=== PATIENT | female | born 1960 | race Caucasian/White ===

== ENCOUNTER 2017-12-01 21:23 | Emergency (ER) | payer OTHER ==
[2017-12-01 22:21] VITALS: BP 157/72
[2017-12-01] MEDS ORDERED: Proparacaine 0.5% Ophth Soln 15 ML Bottle EYELF ONE (23:23)
--- NOTE | 2017-12-01 23:51 | EDM.PDOC ---
ED HPI GENERAL MEDICAL PROBLEM - General Chief Complaint: ENT Problem Stated Complaint: LEFT EYE SWOLLEN SHUT Time Seen by Provider: 12/01/17 23:18 Source of Information: Reports: Patient History Limitations: Reports: No Limitations - History of Present Illness INITIAL COMMENTS - FREE TEXT/NARRATIVE: Dx pink eye to left eye a couple days ago. Had been using string prosper but doesn't remember getting anyting in eye. Rx polymixin/TMP/SMX drops. Getting worse. Itching and burning. Pt just remembered that long ago she had some kind of reaction to sulfa but not listed as allergy. - Related Data Allergies Allergy/AdvReac Type Severity Reaction Status Date / Time levofloxacin Allergy Hives Verified 12/01/17 22:25 Home Meds: Home Meds Citalopram [Citalopram HBr] 40 mg PO DAILY 06/19/16 [History] Hydrochlorothiazide 25 mg PO DAILY 06/19/16 [History] LORazepam [Ativan] 0.5 mg PO BEDTIME 06/19/16 [History] Omeprazole 40 mg PO DAILY 06/19/16 [History] Polymyxin B Sulf/Trimethoprim [Polymyxin B-Tmp Eye Drops] 1 - 2 drop EYELF Q4H 12/01/17 [History] Past Medical History - Past Health History Medical/Surgical History: Denies Medical/Surgical History Cardiovascular History: Reports: Hypertension Gastrointestinal History: Reports: Hiatal Hernia [employer] History: Reports: Psychiatric History: Reports: Anxiety - Past Surgical History Female Surgical History: Reports: Tubal Ligation Social & Family History - Tobacco Use Smoking Status *Q: Never Smoker - Caffeine Use Caffeine Use: Reports: None - Recreational Drug Use Recreational Drug Use: No ED ROS ENT - Review of Systems Review Of Systems: ROS reveals no pertinent complaints other than HPI. ED EXAM, ENT - Physical Exam Exam: See Below Exam Limited By: No Limitations General Appearance: Alert Eye Exam: Bilateral Eye: Other (very angry red conjunctiva with some conj edema. PERRLA, EOMI. No FB. Fluorescein stain. No corneal abnormality. no definite discharge. Some possible perorbital cellulitis, mild. Can't test vision.) Course - Vital Signs Last Recorded V/S: Last Vital Signs Temp 37.8 C 12/01/17 22:27 Pulse 82 12/01/17 22:27 Resp 18 12/01/17 22:27 BP 157/72 H 12/01/17 22:27 Pulse Ox 95 12/01/17 22:27 - Orders/Labs/Meds Meds: Medications Discontinued Medications Generic Name Dose Route Start Last Admin Trade Name Rhiannon PRN Reason Stop Dose Admin Proparacaine HCl 1 ml 12/01/17 23:23 Proparacaine 0.5% Ophth Soln EYELF 12/01/17 23:24 ONETIME ONE Departure - Departure Time of Disposition: 23:51 Disposition: Home, Self-Care 01 Condition: Fair Clinical Impression: [place] eye disease of left eye - Discharge Information Referrals: Morgan Kang MD [Primary Care Provider] - Additional Instructions: Use Gentamicin drops as directed. Stop the Polymixin/TMP/SMX drops that contain sulfa. See your program developer tomorrow for a re-check. Very important. Also take Cephalexin 500 mg 4 times per day. There may also be some infection in the skin around your eye.
== END 2017-12-02 00:03 | disposition home or self-care (01) ==
LOC: JP.ED 21:23
DX: H10.022 Other mucopurulent conjunctivitis, left eye (principal); I10 Essential (primary) hypertension; F41.9 Anxiety disorder, unspecified; Z79.899 Other long term (current) drug therapy; Z88.1 Allergy status to other antibiotic agents
CPT/HCPCS: 99283; A9270

== ENCOUNTER 2021-11-09 10:11 | Day surgery (SDC) | payer OTHER ==
[~2021-11-09 10:11] MED LIST: Midazolam 1 MG/ML 2 ML SDV ONE; Propofol 200 MG/20 ML SDV ONE; fentaNYL 100 MCG/2 ML SDV ONE
[2021-11-09] MEDS: Lactated Ringers 1,000 ML IV SCH (10:30)
[2021-11-09] MEDS ORDERED: Propofol 200 MG/20 ML SDV ONE (11:10)
[2021-11-09 12:12] VITALS: PULSE 76
[2021-11-09 12:26] VITALS: BP 125/65
== END 2021-11-09 12:31 | disposition home or self-care (01) ==
LOC: JP.SDS 10:11
PROVIDERS: ATTEND Family Medicine
DX: Z12.11 Encounter for screening for malignant neoplasm of colon (principal); K57.30 Diverticulosis of large intestine without perforation or abscess without bleeding; K31.7 Polyp of stomach and duodenum; K21.9 Gastro-esophageal reflux disease without esophagitis; K44.9 Diaphragmatic hernia without obstruction or gangrene; I10 Essential (primary) hypertension; N39.0 Urinary tract infection, site not specified; F32.9 Major depressive disorder, single episode, unspecified; Z88.2 Allergy status to sulfonamides; Z88.8 Allergy status to other drugs, medicaments and biological substances; Z98.890 Other specified postprocedural states
CPT/HCPCS: 43239; 45378; 88305; J2250; J2704; J3010; J7120

== ENCOUNTER 2023-06-07 19:30 | Emergency (ER) | payer OTHER ==
[2023-06-07 20:19] LABS: BASOPHILS PERCENT AUTO 0.2 % (0.1-1.3); HEMATOCRIT 44.2 % (34.3-46.0); HEMOGLOBIN 14.9 g/dL (11.2-15.5); IMMATURE GRAN PERCENT AUTO 0.2 % (0.0-0.7); LYMPHOCYTES ABSOLUTE AUTO 1.59 K/uL (0.8-3.3); MEAN CORPUSCULAR HGB CONC 33.7 g/dL (31.6-35.5); MEAN CORPUSCULAR VOLUME 83.1 fL (81.4-99.0); MONOCYTES PERCENT AUTO 18.2 % (3.3-12.6); NEUTROPHILS ABSOLUTE AUTO 2.88 K/uL (1.0-7.6); NEUTROPHILS PERCENT AUTO 52.4 % (40.0-78.1); PLATELET COUNT,PLT 233 K/uL (130-375); RED BLOOD CELL COUNT 5.32 M/uL (3.77-5.24); WHITE BLOOD CELL COUNT,WBC 5.5 K/uL (3.2-11.0)
[2023-06-07 20:20] LABS: BASOPHILS ABSOLUTE AUTO 0.01 K/uL (0.00-0.10); IMMATURE GRAN ABSOLUTE AUTO 0.01 K/uL (0.00-0.23)
[2023-06-07] MEDS: LORazepam 2 MG/ML SDV IVPUSH ONE (20:22)
[2023-06-07] MEDS: HYDROmorphone 0.5 MG/0.5 ML Syringe IVPUSH ONE (20:23)
[2023-06-07] MEDS: Lactated Ringers 1,000 ML IV SCH (20:27)
[2023-06-07 20:47] LABS: ALANINE AMINOTRANSFERASE,ALT 25 U/L (12-78); ALBUMIN 3.9 g/dL (3.4-5.0); ALKALINE PHOSPHATASE 103 U/L (46-116); ASPARTATE AMNIOTRANSFERASE,AST 26 U/L (15-37); BILIRUBIN TOTAL 0.3 mg/dL (0.2-1.0); BLOOD UREA NITROGEN,BUN 15 mg/dL (7-18); CALCIUM 9.2 mg/dL (8.5-10.1); CARBON DIOXIDE,CO2 28 mmol/L (21-32); CHLORIDE,CL 96 mmol/L (100-108); CREATININE 1.1 mg/dL (0.6-1.0); ESTIMATED GFR 56 mL/min (>60); GLUCOSE RANDOM 134 mg/dL (74-106); POTASSIUM,K 3.3 mmol/L (3.6-5.2); PROTEIN TOTAL,TP 7.7 g/dL (6.4-8.2); SODIUM,NA 137 mmol/L (140-148); TROPONIN I HIGH SENSITIVITY 19.5 pg/mL (<=60.3)
[2023-06-07 20:48] LABS: ANION GAP 16.3 mmol/L (5.0-14.0)
[2023-06-07 21:04] VITALS: PULSE 92
[2023-06-07] MEDS: Sodium Chloride 0.9% 50 ML IV SCH (21:16)
[2023-06-07] MEDS: Iopamidol 755 Mg/ML 100 ML Bottle IV SCH (21:16)
[2023-06-07] MEDS: Pantoprazole 40 MG Vial IVPUSH ONE (21:34)
[2023-06-07 21:43] VITALS: BP 134/54
== END 2023-06-07 22:12 | disposition home or self-care (01) ==
LOC: JP.ED 19:30
DX: K21.9 Gastro-esophageal reflux disease without esophagitis (principal); I10 Essential (primary) hypertension; E66.9 Obesity, unspecified; Z79.899 Other long term (current) drug therapy; Z88.2 Allergy status to sulfonamides; Z88.8 Allergy status to other drugs, medicaments and biological substances; Z68.41 Body mass index [BMI] 40.0-44.9, adult
CPT/HCPCS: 36415; 74177; 80053; 83605; 83690; 84484; 85025; 96361; 96374; 96375; 99284; C9113; J1170; J2060; J3490; J7120; Q9967

== ENCOUNTER 2023-06-08 14:09 | Emergency (ER) | payer OTHER ==
[2023-06-08 14:30] VITALS: BP 182/89; PULSE 106
[2023-06-08] MEDS ORDERED: Prochlorperazine 10 MG/2 ML SDV IVPUSH ONE (14:35)
[2023-06-08] MEDS ORDERED: Sodium Chloride 0.9% 1,000 ML IV ONE (14:36)
[2023-06-08] MEDS ORDERED: HYDROmorphone 0.5 MG/0.5 ML Syringe IVPUSH ONE (14:36)
[2023-06-08 14:47] LABS: BASE EXCESS VENOUS 3.2 mm/L; BICARBONATE,VENOUS 22.2 mmol/L; CARBOXYHEMOGLOBIN 2.5 % (0.0-1.6); O2 SATURATION VENOUS 71.5; PCO2 VENOUS 20.8 mm/Hg; PH,VENOUS 7.631 (7.350-7.450); PO2 VENOUS 31.4 mm/Hg; TOTAL HEMOGLOBIN 15.3 g/dL (12.0-16.0)
[2023-06-08 14:48] LABS: HEMATOCRIT 42.9 % (34.3-46.0); HEMOGLOBIN 14.9 g/dL (11.2-15.5); IMMATURE GRAN PERCENT AUTO 0.4 % (0.0-0.7); LYMPHOCYTES ABSOLUTE AUTO 0.74 K/uL (0.8-3.3); LYMPHOCYTES PERCENT AUTO 14.1 % (11.4-47.7); MEAN CORPUSCULAR HEMOGLOBIN 28.6 pg (31.6-35.5); MEAN CORPUSCULAR HGB CONC 34.7 g/dL (31.6-35.5); MEAN CORPUSCULAR VOLUME 82.3 fL (81.4-99.0); MONOCYTES ABSOLUTE AUTO 0.72 K/uL (0.20-0.90); MONOCYTES PERCENT AUTO 13.7 % (3.3-12.6); NEUTROPHILS ABSOLUTE AUTO 3.77 K/uL (1.0-7.6); NEUTROPHILS PERCENT AUTO 71.8 % (40.0-78.1); PLATELET COUNT,PLT 218 K/uL (130-375); RED BLOOD CELL COUNT 5.21 M/uL (3.77-5.24); WHITE BLOOD CELL COUNT,WBC 5.3 K/uL (3.2-11.0)
[2023-06-08 14:50] LABS: IMMATURE GRAN ABSOLUTE AUTO 0.02 K/uL (0.00-0.23)
[2023-06-08] MEDS ORDERED: Pantoprazole 40 MG Vial IVPUSH ONE (14:56)
[2023-06-08 15:18] LABS: ALANINE AMINOTRANSFERASE,ALT 24 U/L (12-78); ALBUMIN 3.7 g/dL (3.4-5.0); ALKALINE PHOSPHATASE 90 U/L (46-116); ASPARTATE AMNIOTRANSFERASE,AST 27 U/L (15-37); BILIRUBIN TOTAL 0.6 mg/dL (0.2-1.0); BLOOD UREA NITROGEN,BUN 11 mg/dL (7-18); CALCIUM 9.1 mg/dL (8.5-10.1); CARBON DIOXIDE,CO2 22 mmol/L (21-32); CHLORIDE,CL 98 mmol/L (100-108); CREATININE 1.2 mg/dL (0.6-1.0); EST CRCL DRUG DOSING (CG) 37.95 mL/min; ESTIMATED GFR 51 mL/min (>60); GLUCOSE RANDOM 160 mg/dL (74-106); POTASSIUM,K 3.7 mmol/L (3.6-5.2); PROTEIN TOTAL,TP 7.3 g/dL (6.4-8.2); SODIUM,NA 135 mmol/L (140-148)
[2023-06-08 15:19] LABS: CORONAVIRUS COVID-19 NAA NEGATIVE (NEGATIVE); INFLUENZA A NAA NEGATIVE (NEGATIVE); INFLUENZA B NAA NEGATIVE (NEGATIVE); RESPIRATORY SYNCYTIAL VIR NAA NEGATIVE (NEGATIVE)
[2023-06-08 15:20] LABS: ANION GAP 18.7 mmol/L (5.0-14.0)
[2023-06-08 16:16] LABS: APPEARANCE,URINE CLEAR (CLEAR); BILIRUBIN,URINE NEGATIVE (NEGATIVE); COLOR,URINE YELLOW (YELLOW); GLUCOSE,URINE NEGATIVE (NEGATIVE); KETONES,URINE 40 mg/dL (NEGATIVE); LEUKOCYTE ESTERASE,URINE NEGATIVE (NEGATIVE); NITRITE,URINE NEGATIVE (NEGATIVE); OCCULT BLOOD,URINE TRACE-INTACT (NEGATIVE); PH,URINE 8.5 (5.0-8.0); PROTEIN,URINE NEGATIVE (NEGATIVE); UROBILINOGEN,URINE 0.2 EU/dL (0.2-1.0)
[2023-06-08 16:27] LABS: AMORPHOUS SEDIMENT,URINE NOT SEEN; BACTERIA,URINE FEW; EPITHELIAL CELLS,URINE FEW; MUCUS,URINE RARE; RBC,URINE 0-5 (0-5); WBC,URINE 0-5 (0-5)
[2023-06-08 16:28] LABS: AMPHETAMINES SCREEN, URINE NEGATIVE (NEGATIVE); BARBITURATE SCREEN,URINE NEGATIVE (NEGATIVE); BENZODIAZEPINES SCREEN,URINE PRESUMPTIVE POSITIVE (NEGATIVE); METHADONE SCREEN, URINE NEGATIVE (NEGATIVE); METHAMPHETAMINES SCREEN, URINE NEGATIVE (NEGATIVE); OXYCODONE SCREEN,URINE NEGATIVE (NEGATIVE); PROPOXYPHENE SCREEN,URINE NEGATIVE (NEGATIVE); THC SCREEN,URINE 50 NG/ML NEGATIVE (NEGATIVE)
== END 2023-06-08 16:43 | disposition home or self-care (01) ==
LOC: JP.ED 14:09
DX: K21.9 Gastro-esophageal reflux disease without esophagitis (principal); K44.9 Diaphragmatic hernia without obstruction or gangrene; R06.4 Hyperventilation; I10 Essential (primary) hypertension; E66.9 Obesity, unspecified; Z68.36 Body mass index [BMI] 36.0-36.9, adult; Z88.2 Allergy status to sulfonamides; Z88.8 Allergy status to other drugs, medicaments and biological substances; Z79.899 Other long term (current) drug therapy
CPT/HCPCS: 0241U; 36415; 80053; 80305; 80307; 81001; 82803; 83605; 83690; 85025; 96361; 96374; 96375; 99284; C9113; J0780; J1170; J7030